=== PATIENT | female | born 1950 | race Asian ===

== ENCOUNTER 2021-12-24 12:36 | Emergency (ER) | payer OTHER ==
[~2021-12-24] VITALS: Ht 162.6 cm; Wt 84.8 kg
[2021-12-24 12:49] VITALS: BP_SYST 111
[2021-12-24 13:33] LABS: BASOPHILS % (AUTO) 0.4 % (0.0-2.0); EOSINOPHILS # (AUTO) 0.3 K/uL (0.0-0.4); EOSINOPHILS % (AUTO) 4.2 % (0.0-4.0); HEMATOCRIT 39.8 % (36-48); HEMOGLOBIN 13.2 g/dL (12.0-16.0); LYMPHOCYTES # (AUTO) 1.1 K/uL (1.0-5.5); LYMPHOCYTES % (AUTO) 14.7 % (20.5-51.5); MEAN CORPUSCULAR HEMOGLOBIN 26 pg (27-31); MEAN CORPUSCULAR HGB CONC 33 % (32-36); MEAN CORPUSCULAR VOLUME 79 fL (79.0-98.0); MONOCYTES # (AUTO) 0.7 K/uL (0.0-1.0); MONOCYTES % (AUTO) 9.6 % (1.7-9.3); NEUTROPHILS # (AUTO) 5.5 K/uL (1.8-7.7); NEUTROPHILS % (AUTO) 71.1 % (40.0-70.0); PLATELET COUNT (AUTO) 199 K/uL (130-430); RED BLOOD CELL COUNT(AUTO) 5.01 MIL/uL (4.2-6.2); RED CELL DISTRIBUTION WIDTH 14.4 % (9.0-15.0); WHITE BLOOD COUNT (AUTO) 7.8 K/uL (4.8-10.8)
[2021-12-24 13:41] LABS: BILIRUBIN,URINE NEGATIVE (NEGATIVE); BLOOD, URINE NEGATIVE (NEGATIVE); CLARITY/URINE CLEAR (CLEAR); COLOR,URINE YELLOW (YELLOW); GLUCOSE,URINE NEGATIVE (NEGATIVE); KETONES,URINE NEGATIVE (NEGATIVE); LEUKOCYTE ESTERASE ,URINE NEGATIVE (NEGATIVE); NITRITE, URINE NEGATIVE (NEGATIVE); PROTEIN URINE NEGATIVE (NEGATIVE); UROBILINOGEN,URINE 0.2 (0.2-1.0)
[2021-12-24 13:45] LABS: ANION GAP 9 (5-15); CALCIUM 9.1 mg/dL (8.4-11.0); CHLORIDE 104 mmol/L (98-107); CREATININE 0.74 mg/dL (0.55-1.30); GLUCOSE 132 mg/dL (70-99); POTASSIUM 3.7 mmol/L (3.5-5.1); SODIUM SERUM 139 mmol/L (136-145); UREA NITROGEN, BLOOD 15 mg/dL (8-21)
[2021-12-24 13:47] LABS: GFR AFRICAN AMERICAN 100 mL/min (>90)
[2021-12-24 13:50] LABS: ALANINE AMINOTRANSFERASE 12 U/L (12-78); ALBUMIN 3.5 g/dL (3.4-4.8); ASPARTATE AMINOTRANSFERASE 17 U/L (10-37); TOTAL BILIRUBIN 0.5 mg/dL (0.0-1.0)
[2021-12-24] MEDS ORDERED: MECLIZINE HCL 25 MG TABLET (ANITVERT) PO ONE (14:15)
[2021-12-24 16:18] VITALS: BP_SYST 123
== END 2021-12-24 16:18 | disposition home or self-care (01) ==
LOC: SED 12:36
DX: R42 Dizziness and giddiness (principal); R11.0 Nausea; J44.9 Chronic obstructive pulmonary disease, unspecified; I10 Essential (primary) hypertension; Z91.040 Latex allergy status; Z79.899 Other long term (current) drug therapy
CPT/HCPCS: 99285; 70450; 71045; 80053; 82550; 85025; 84484; 36415; 93005; 76376; 81003; J8597

== ENCOUNTER 2023-06-18 17:05 | Emergency (ER) | payer OTHER ==
[~2023-06-18] VITALS: Ht 162.6 cm; Wt 83.9 kg
[2023-06-18 18:09] VITALS: BP_SYST 124; PULSE 95; RESP 16; TEMP 98.4; O2SAT 93
[2023-06-18 19:40] LABS: INFLUENZA TYPE A Negative (NEGATIVE); INFLUENZA TYPE B NEGATIVE (NEGATIVE)
[2023-06-18] MEDS ORDERED: LEVO-62 PO (20:26)
[2023-06-18] MEDS ORDERED: PRED20TA PO (20:26)
[2023-06-18] MEDS ORDERED: levoFLOXacin 500 MG TABLET PO ONE (20:30)
[2023-06-18] MEDS ORDERED: levoFLOXacin 500 MG TABLET ONE (20:34)
[2023-06-18 20:45] VITALS: BP_SYST 124; PULSE 95; RESP 16; TEMP 98.4; O2SAT 93
== END 2023-06-18 20:45 | disposition home or self-care (01) ==
LOC: SED 17:05
DX: J98.4 Other disorders of lung (principal); R05.9 Cough, unspecified; R09.81 Nasal congestion; R06.02 Shortness of breath; J44.9 Chronic obstructive pulmonary disease, unspecified; I10 Essential (primary) hypertension; Z91.040 Latex allergy status; Z79.899 Other long term (current) drug therapy; Z20.822 Contact with and (suspected) exposure to COVID-19
CPT/HCPCS: 36415; 71045; 99284

== ENCOUNTER 2024-02-21 05:17 | Day surgery (SDC) | payer OTHER ==
[~2024-02-21] VITALS: Ht 175.3 cm; Wt 58.8 kg
[~2024-02-21 05:17] MED LIST: LEVO-62 PO; PRED20TA PO
[2024-02-21] MEDS ORDERED: ACETAMINOPHEN 500 MG TABLET ONE (05:41)
[2024-02-21] MEDS ORDERED: CELECOXIB 200 MG CAPSULE ONE (05:57)
[2024-02-21] MEDS: SCOPOLAMINE HYDROBROMIDE 1 MG PATCH .72 H (TRANSDERM-SCOP) TD ONE (06:08)
[2024-02-21] MEDS: GABAPENTIN 300 MG CAPSULE ONE (06:08)
[2024-02-21] MEDS: CELECOXIB 200 MG CAPSULE PO ONE (06:08)
[2024-02-21] MEDS: ACETAMINOPHEN 500 MG TABLET PO ONE (06:08)
[2024-02-21] MEDS ORDERED: fentaNYL CITRATE/PF 100 MCG/2 ML AMP ONE (07:00)
[2024-02-21] MEDS ORDERED: MIDAZOLAM HCL 2 MG/2 ML VIAL (VERSED) ONE (07:00)
[2024-02-21] MEDS ORDERED: CEFAZOLIN 2 GM IVPB PREMIX 50 ML IV ONE (07:00)
[2024-02-21] MEDS ORDERED: GABAPENTIN 300 MG CAPSULE PO ONE (07:00)
[2024-02-21] MEDS ORDERED: ONDANSETRON HCL 4 MG/2 ML VIAL ONE (07:00)
[2024-02-21] MEDS ORDERED: NS IRRIG SOLN 1000 ML IR ONE (07:00)
[2024-02-21] MEDS ORDERED: SCOPOLAMINE HYDROBROMIDE 1 MG PATCH .72 H (TRANSDERM-SCOP) TD ONE (07:00)
[2024-02-21] MEDS ORDERED: ceFAZolin SODIUM 1 GM VIAL ONE (07:00)
[2024-02-21] MEDS ORDERED: VANCOMYCIN HCL 1000 MG/VIAL IV ONE (07:00)
[2024-02-21] MEDS ORDERED: ePHEDrine sulfate 50 MG/ML VIAL ONE (07:00)
[2024-02-21] MEDS ORDERED: oxyCODONE HCL 10 MG TAB.ER.12H PO ONE (07:00)
[2024-02-21] MEDS ORDERED: DEXAMETHASONE SOD PHOSPHATE 4 MG/ML VIAL ONE (07:00)
[2024-02-21] MEDS ORDERED: LR 1,000 ML IV.SOLN IV ONE (07:00)
[2024-02-21] MEDS ORDERED: TRANEXAMIC ACID 1,000 MG/10 ML VIAL ONE (07:00)
[2024-02-21] MEDS ORDERED: BUPIVACAINE /PF 0.25% 10 ML VIAL INJ ONE (07:00)
[2024-02-21] MEDS: oxyCODONE HCL 10 MG TAB.ER.12H PO ONE (07:05)
[2024-02-21] MEDS ORDERED: LR 1,000 ML IV SCH (08:00)
[2024-02-21] MEDS ORDERED: hydrALAZINE HCL 20 MG/ML VIAL IVP PRN (08:00)
[2024-02-21] MEDS ORDERED: HYDROmorphone 1 MG/ML INJ. CARTRIDGE IVP PRN ×5 (08:00→11:00)
[2024-02-21] MEDS ORDERED: METOCLOPRAMIDE HCL 10 MG/2 ML VIAL IVP PRN ×2 (08:00→09:30)
[2024-02-21] MEDS ORDERED: LABETALOL 100 MG/ 20ML VIAL IVP PRN (08:00)
[2024-02-21] MEDS ORDERED: MEPERIDINE HCL/PF 25 MG/ML DISP.SYRIN IVP PRN (08:00)
[2024-02-21] MEDS ORDERED: BISACODYL 10 MG/SUPPOSITORY RC PRN (09:30)
[2024-02-21] MEDS ORDERED: LACTULOSE 20 GM/30 ML UDC PO PRN (09:30)
[2024-02-21] MEDS ORDERED: DIPHENHYDRAMINE HCL 25 MG CAPSULE PO PRN (09:30)
[2024-02-21] MEDS: METOCLOPRAMIDE HCL 10 MG/2 ML VIAL ONE (09:36)
[2024-02-21 10:10] VITALS: BP_SYST 132; PULSE 83; RESP 20; TEMP 98.1; O2SAT 95
[2024-02-21] MEDS ORDERED: traMADol HCL HCL 50 MG TABLET (ULTRAM) PO PRN (11:00)
[2024-02-21] MEDS ORDERED: LORATADINE 10 MG TABLET PO PRN (11:00)
[2024-02-21] MEDS ORDERED: oxyCODONE HCL 5 MG TABLET PO PRN ×2 (11:00)
[2024-02-21] MEDS ORDERED: ceFAZolin SODIUM 2 GM in D5W 50 ML IV SCH (11:15)
[2024-02-21] MEDS ORDERED: ONDANSETRON HCL 4 MG/2 ML VIAL IVP PRN (11:45)
[2024-02-21] MEDS: TAMSULOSIN HCL 0.4 MG CAP PO ONE (12:01)
[2024-02-21] MEDS ORDERED: ACETAMINOPHEN 500 MG TABLET PO SCH (14:00)
[2024-02-21] MEDS ORDERED: KETOROLAC TROMETHAMINE 10 MG TABLET (TORADOL) PO SCH (14:00)
[2024-02-21] MEDS ORDERED: SENNOSIDES/DOCUSATE SODIUM 1 TAB TABLET(SENOKOT-S) PO SCH (21:00)
[2024-02-22] MEDS ORDERED: ASPIRIN 81 MG TAB.CHEW PO SCH (09:00)
[2024-02-22] MEDS ORDERED: CELECOXIB 200 MG CAPSULE PO SCH (11:00)
[2024-02-28] MEDS ORDERED: TAMSULOSIN HCL 0.4 MG CAP PO SCH (10:00)
== END 2024-02-21 13:40 | disposition home or self-care (01) ==
LOC: SDS 05:17 → SMU 07:55 → SDS 13:40
PROVIDERS: ATTEND Student in an Organized Health Care Education/Training Program
DX: M17.12 Unilateral primary osteoarthritis, left knee (principal); I10 Essential (primary) hypertension; E78.5 Hyperlipidemia, unspecified; J44.9 Chronic obstructive pulmonary disease, unspecified; K21.9 Gastro-esophageal reflux disease without esophagitis; Z91.040 Latex allergy status; Z87.891 Personal history of nicotine dependence; Z98.890 Other specified postprocedural states; Z79.899 Other long term (current) drug therapy
CPT/HCPCS: 87081; 27447; 97162; 64447; 73560; 97110; 97530; 97116; 88305; 88311; J3490 ×2; J0690 ×2; J0696; J1100; J2765; J3465; J2405; J3370; J3010; J7060; J7120; C1776 ×3; C1713